=== PATIENT | male | born 1950 | race American Indian/Alaskan Native ===

== ENCOUNTER 2021-01-08 17:09 | Emergency (ER) | payer MEDICARE ==
[~2021-01-08] VITALS: Ht 190.5 cm; Wt 107.5 kg
[2021-01-08] MEDS ORDERED: IBUPROFEN800 MG PO (18:10)
[2021-01-08] MEDS ORDERED: TYLENOL # 31 EA PO (18:10)
[2021-01-08] MEDS ORDERED: KETOROLAC TROMETHAMINE 30 MG/ML VIAL IM ONE (18:15)
[2021-01-08] MEDS ORDERED: ONDANSETRON HCL 4 MG ORAL DISINTEGRATING TAB PO ONE (18:15)
[2021-01-08] MEDS ORDERED: ACETAMINOPHEN 325 MG TAB PO ONE (18:15)
[2021-01-08] MEDS ORDERED: KETOROLAC TROMETHAMINE 30 MG/ML VIAL ONE (18:16)
[2021-01-08] MEDS ORDERED: ONDANSETRON HCL 4 MG ORAL DISINTEGRATING TAB ONE (18:16)
[2021-01-08] MEDS ORDERED: ACETAMINOPHEN 325 MG TAB ONE (18:17)
== END 2021-01-08 18:51 | disposition home or self-care (01) ==
LOC: EDSEX 17:09 → FSED 17:40
DX: M25.512 Pain in left shoulder (principal); M79.602 Pain in left arm; M54.12 Radiculopathy, cervical region
CPT/HCPCS: 99282; J1885; Q0162

== ENCOUNTER 2022-07-12 08:36 | Emergency (ER) | payer MEDICARE, OTHER ==
[~2022-07-12] VITALS: Ht 190.5 cm; Wt 110.3 kg
[~2022-07-12 08:36] MED LIST: IBUPROFEN800 MG PO; TYLENOL # 31 EA PO
[2022-07-12] MEDS ORDERED: CLARITIN10 MG PO (09:19)
[2022-07-12] MEDS ORDERED: zinc (09:19)
[2022-07-12] MEDS ORDERED: RESTASIS1 EACH (09:19)
[2022-07-12] MEDS ORDERED: FISH OIL 1,201200 MG (09:19)
[2022-07-12] MEDS ORDERED: BIOFLEX TABLET1 EACH (09:19)
[2022-07-12] MEDS ORDERED: IBUPROFEN800 MG PO (09:42)
[2022-07-12] MEDS ORDERED: GABAPENTIN300 MG PO (09:43)
[2022-07-12] MEDS ORDERED: KETOCONAZOLE120 ML TOP (09:46)
== END 2022-07-12 10:01 | disposition home or self-care (01) ==
LOC: FSED 09:09
DX: M79.671 Pain in right foot (principal); M54.16 Radiculopathy, lumbar region; M54.9 Dorsalgia, unspecified; G89.29 Other chronic pain
CPT/HCPCS: 99283

== ENCOUNTER 2024-02-28 16:07 | Emergency (ER) | payer MEDICARE, OTHER ==
[~2024-02-28] VITALS: Ht 193 cm; Wt 102.1 kg
[~2024-02-28 16:07] MED LIST changes: +BIOFLEX TABLET1 EACH; +CLARITIN10 MG PO; +FISH OIL 1,201200 MG; +GABAPENTIN300 MG PO; +KETOCONAZOLE120 ML TOP; +RESTASIS1 EACH; +zinc
[2024-02-28 16:16] VITALS: PULSE 100; RESP 18; TEMP 98.6; O2SAT 98
[2024-02-28] MEDS ORDERED: MOTRIN800 MG PO (16:31)
[2024-02-28] MEDS ORDERED: GABAPENTIN300 MG PO (16:31)
[2024-02-28] MEDS ORDERED: HYDROCHLOROTHIA25 MG PO (16:31)
== END 2024-02-28 16:40 | disposition home or self-care (01) ==
LOC: FSED 16:16
DX: M25.512 Pain in left shoulder (principal); M25.511 Pain in right shoulder; M54.12 Radiculopathy, cervical region
CPT/HCPCS: 99282